=== PATIENT | female | born 1990 | race African-American/Black ===

== ENCOUNTER 2021-05-23 14:57 | Outpatient (CLI) | payer BC, MEDICAID | END 2021-05-23 14:58 | disposition home or self-care (01) | LOC: BICULT 14:57 → EDSTATUS 15:00 | PROVIDERS: ATTEND Nurse Practitioner Women's Health | DX: R10.2 Pelvic and perineal pain (principal); N83.201 Unspecified ovarian cyst, right side | CPT/HCPCS: 76856 ==

== ENCOUNTER 2022-08-13 12:59 | Outpatient (CLI) | payer BC | END 2022-08-13 13:00 | disposition home or self-care (01) | LOC: BICULT 12:59 | PROVIDERS: ATTEND Nurse Practitioner Women's Health | DX: R10.2 Pelvic and perineal pain (principal) | CPT/HCPCS: 76856 ==